=== PATIENT | male | born 1980 | race African-American/Black ===

== ENCOUNTER 2023-01-04 18:48 | Emergency (ER) | payer MEDICAID, OTHER ==
[~2023-01-04] VITALS: Ht 175.3 cm; Wt 84.0 kg
[~2023-01-04 18:48] MED LIST: AMLO2.5T2 PO
[2023-01-04 19:00] VITALS: BP 155/103; PULSE 101; RESP 16; TEMP 98.2
== END 2023-01-04 20:38 | disposition left against medical advice (07) ==
LOC: ER 18:48
DX: Z53.21 Procedure and treatment not carried out due to patient leaving prior to being seen by health care provider (principal)
CPT/HCPCS: 99281